=== PATIENT | female | born 1970 | race Caucasian/White ===

== ENCOUNTER 2019-02-13 09:19 | Emergency (ER) | payer MEDICARE, BC ==
[~2019-02-13] VITALS: Ht 160 cm; Wt 60.1 kg
[~2019-02-13 09:19] MED LIST: CLON0.5T20 PO; DIPH1TAB PO; METH750T2 PO; OXYC-307 PO
[2019-02-13] MEDS ORDERED: SERT25TA PO (09:40)
--- NOTE | 2019-02-13 10:11 | NUR ---
TASK RN, URINE COLLECTED/SENT TO LAB. CALL LIGHT WITHIN REACH.
[2019-02-13 10:14] LABS: BASOPHILS # (AUTO) 0.03 x10^3/uL (0-0.1); BASOPHILS % (AUTO) 1 % (0-1); EOSINOPHILS # (AUTO) 0.02 x10^3/uL (0-0.4); EOSINOPHILS % (AUTO) 0 % (1-7); LYMPHOCYTES % (AUTO) 31 % (22-44); MD NO; MEAN CORPUSCULAR HEMOGLOBIN 31.9 pg (27.0-34.8); MEAN CORPUSCULAR HGB CONC 33.1 g/dL (32.4-35.8); MEAN CORPUSCULAR VOLUME 96.4 fL (80-100); MEAN PLATELET VOLUME 7.3 fL (7.4-10.4); MONOCYTES # (AUTO) 0.46 x10^3/uL (0.2-0.8); MONOCYTES % (AUTO) 8 % (2-9); NEUTROPHILS # (AUTO) 3.32 x10^3/uL (1.8-6.8); NEUTROPHILS % (AUTO) 60 % (42-75); PLATELET COUNT 397 x10^3/uL (130-400); RED BLOOD COUNT 4.06 x10^6/uL (3.82-5.3); RED CELL DISTRIBUTION WIDTH 14.2 % (9.6-15.2)
[2019-02-13 10:15] LABS: ALANINE AMINOTRANSFERASE 64 U/L (12-78); ALBUMIN 3.5 g/dL (3.4-5.0); ANION GAP 12 mmol/L (5-15); CALCIUM 8.8 mg/dL (8.5-10.1); CHLORIDE 107 mmol/L (98-107); CREATININE 0.78 mg/dL (0.55-1.02)
[2019-02-13 10:25] LABS: ALKALINE PHOSPHATASE 69 U/L (45-117); BILIRUBIN,TOTAL 0.5 mg/dL (0.2-1.0); FREE T4 (FREE THYROXINE) 0.79 ng/dL (0.76-1.46); TOTAL PROTEIN 7.1 g/dL (6.4-8.2)
[2019-02-13 10:32] VITALS: BP 142/95
[2019-02-13 10:36] LABS: HCG UR SG 1.021 (1.003-1.030); MICROSCOPIC NOT IND
[2019-02-13 10:37] LABS: CULTURE INDICATED? NO
[2019-02-13] MEDS ORDERED: LORazepam 1MG TABLET ONE (10:55)
[2019-02-13] MEDS ORDERED: LORazepam 1MG TABLET PO ONE (11:00)
== END 2019-02-13 12:01 | disposition home or self-care (01) ==
LOC: ED 10:20
DX: F41.1 Generalized anxiety disorder (principal); G89.29 Other chronic pain; M54.9 Dorsalgia, unspecified; F32.9 Major depressive disorder, single episode, unspecified
CPT/HCPCS: 36415; 74021; 80053; 81003; 81025; 82962; 83690; 84439; 84443; 85025; 93005; 99284